=== PATIENT | male | born 1955 | race Caucasian/White ===

== ENCOUNTER 2022-07-29 05:43 | Inpatient (IN) | payer MEDICARE ==
[2022-07-24 12:52] LABS: ALBUMIN 4.5 G/DL (3.4-5.0); ALBUMIN/GLOBULIN RATIO 1.4 (1.1-1.5); ALKALINE PHOSPHATASE 79 IU/L (46-116); BLOOD UREA NITROGEN 25 MG/DL (7-18); BUN/CREATININE RATIO 22.7 (5.4-32.0); CALCIUM 9.5 MG/DL (8.5-10.1); CHLORIDE 101 MMOL/L (99-107); PRE OP ALT 50 U/L (30-65); PRE OP ANION GAP 9 (8-16); PRE OP AST 32 U/L (10-37); PRE OP BILIRUB, TOTAL 0.8 MG/DL (0.0-1.0); PRE OP GLUCOSE 105 MG/DL (70-104); PRE OP POTASSIUM 3.9 MMOL/L (3.4-5.1); PRE OP SODIUM 138 MMOL/L (135-145); TOTAL CARBON DIOXIDE 28.3 MMOL/L (24-32); TOTAL PROTEIN 7.8 G/DL (6.4-8.2); eGFR 66 ML/MIN
[2022-07-24 12:53] LABS: BASOPHILS % (AUTO) 0.8 % (0-1); EOSINOPHILS # (AUTO) 0.1 X10'3 (0-0.9); EOSINOPHILS % (AUTO) 1.2 % (0-6); LYMPHOCYTES # (AUTO) 1.3 X10'3 (1.1-4.8); LYMPHOCYTES % (AUTO) 20.7 % (21-51); MEAN CORPUSCULAR HEMOGLOBIN 32.1 PG (27.0-31.0); MEAN CORPUSCULAR HGB CONC 34.5 g/dL (33.0-36.5); MEAN CORPUSCULAR VOLUME 93.3 FL (78-98); MEAN PLATELET VOLUME 7.2 FL (7.4-10.4); MONOCYTES # (AUTO) 0.5 X10'3 (0-0.9); MONOCYTES % (AUTO) 8.6 % (2-12); NEUTROPHILS # (AUTO) 4.2 X10'3 (1.8-7.7); NEUTROPHILS % (AUTO) 68.7 % (42-75); PRE OP HEMATOCRIT 38.9 % (42.0-52.0); PRE OP HEMOGLOBIN 13.4 g/dL (14.0-17.9); PRE OP PLATELET COUNT 235 X10'3 (140-440); RED BLOOD COUNT 4.16 X10'6 (4.70-6.10)
[2022-07-29] VITALS (26 sets, daily range): BP systolic 107–193; BP diastolic 47–88
[~2022-07-29] VITALS: Ht 165.1 cm; Wt 76.7 kg
[~2022-07-29 05:43] MED LIST: ASPI-1264 PO; ATOR40TA72 PO; CARI350T PO; DICL75TA28 PO; DOCUMENT DATE & TIME OF BETA-BLOCKER PO ONE; FLUT16SP2 BOTHNARES; LATA2.5D14 EACHEYE; LOSA1TAB41 PO; METO-395 PO; acetaminophen 325mg tablet PO ONE; ceFAZolin inj. 2,000 MG in dextrose 5%-water 100 ML IV ONE; celeCOXIB 100mg capsule PO ONE; famotidine 20mg tablet PO ONE; gabapentin 300mg capsule PO ONE; metoclopramide 5 mg/ml inj IV ONE; oxyCODONE SR 10mg (sust. release) tab -2 tabs (20mg) PO ONE; tranexamic acid inj. 1,000 MG in normal saline IV soln 100ML IV ONE; vancomycin 1,500 MG in NS 300ml IV soln IV ONE
--- NOTE | 2022-07-29 05:55 | NUR ---
PATIENT PREPARED FOR SURGERY, IV STARTED IN RIGHT HAND 18 G. AT BEDSIDE. PT APPEARS VERY ANXIOUS, AND NERVOUS. PT STATES THAT HE DID WATCH THE VIDEO ABOUT HIS SURGERY AND ALSO READ THE HANDBOOK ON TOTAL JOINT REPLACEMENTS. HE USED THE HIBACLEN SOAP FOR 5 DAYS INCLUDING THIS MORNING. HE ALSO STOPPED HIS ASPIRIN DIRECTED 8 DAYS AGO. PT IS PLANNING ON STAYING THE NIGHT. PT AND EDUCATED ON USING THE INCENTIVE SPIROMETER AND WAS ABLE TO RETURN DEMONSTRATE THE USE OF IT. DR FRANK AT BEDSIDE AND MARKED THE LEFT HIP. LEFT HIP WAS WIPED AND SHAVED BY [facility]. DR MARQUEZ FROM ANESTHESIA ALSO AT BEDSIDE AND SPOKE TO PT AT LENGTH ABOUT HIS ANESTHESIA. PT IS CONCERNED ABOUT BECOMING CONSTIPATED AFTER HIS SURGERY, PT EDUCATED ON GOOD BOWEL REGIMENT AND THE USE OF PAIN MEDICATIONS POST SURGERY.
[2022-07-29] MEDS: potassium cl 20mEq in 1/2 NS 1,000 ML IV SCH ×3 (06:40→22:40)
[2022-07-29] MEDS ORDERED: acetaminophen 325mg tablet PO PRN (06:40)
[2022-07-29] MEDS ORDERED: HYDROcodone/acetaminophen 10/325mg tab PO PRN (06:40)
[2022-07-29] MEDS ORDERED: bisacodyl 10mg suppository rectal RC PRN (06:40)
[2022-07-29] MEDS ORDERED: HYDROmorphone inj. 0.5 MG/0.5 ML DISP.SYRIN IV PRN (06:40)
[2022-07-29] MEDS ORDERED: naloxone 0.4 mg/ml inj IV PRN (06:40)
[2022-07-29] MEDS ORDERED: ondansetron/PF 4mg/2ml inj IV PRN ×2 (06:40→10:00)
[2022-07-29] MEDS ORDERED: HYDROmorphone 1 mg/ml syringe IV PRN (06:40)
[2022-07-29] MEDS ORDERED: magnesium hydroxide 30ml (MOM) UD suspension PO PRN (06:40)
[2022-07-29] MEDS ORDERED: diphenhydrAMINE 25mg capsule PO PRN ×2 (06:40)
[2022-07-29] MEDS: ringers solution, lacted 1,000 ML IV SCH ×2 (07:06→16:43)
[2022-07-29] MEDS ORDERED: ketorolac trometh. 30mg/ml inj. ONE (07:15)
[2022-07-29] MEDS ORDERED: epiNEPHrine 1 mg/ml inj ONE (07:15)
[2022-07-29] MEDS ORDERED: ROPIVAcaine 0.5% (5mg/ml) 30ml vial ONE (07:16)
[2022-07-29] MEDS ORDERED: cloNIDine hcl/PF 100mcg/ml inj ONE (07:16)
[2022-07-29] MEDS ORDERED: vancomycin 1,000mg inj ONE (07:16)
--- NOTE | 2022-07-29 07:30 | NUR ---
PTS BLOOD PRESSURE REPEATED 151/72, IMPROVED FROM EARLIER BLOOD PRESSURE
[2022-07-29] MEDS ORDERED: ceFAZolin/D5W- 1GM premix 50 ML IV SCH (08:00)
[2022-07-29] MEDS: latanoprost 0.005% 2.5ml ophthalmic drops EACHEYE SCH (08:00)
[2022-07-29] MEDS: ascorbic acid 500mg tablet PO SCH ×2 (08:00→20:53)
[2022-07-29] MEDS: multivitamins, therapeutics tablet PO SCH (08:00)
[2022-07-29] MEDS: losartan 50mg tablet PO SCH (08:00)
[2022-07-29] MEDS: HYDROchlorothiazide 12.5mg capsule PO SCH (08:00)
[2022-07-29] MEDS: gabapentin 300mg capsule PO SCH ×3 (08:00→20:53)
[2022-07-29] MEDS: aspirin 325mg tablet PO SCH (08:30)
[2022-07-29] MEDS ORDERED: MIDAZolam 1 MG/ML 5ML VIAL ONE (08:40)
[2022-07-29] MEDS ORDERED: fentaNYL/PF 50MCG/1 ML 2ML syringe ONE (08:40)
[2022-07-29] MEDS ORDERED: BUPIVAcaine/PF 7.5mg/ml (0.75%) 10ml vial ONE (08:54)
[2022-07-29] MEDS ORDERED: propofol inj 20 ML IV ONE ×2 (08:54→09:04)
[2022-07-29] MEDS ORDERED: ROPIVAcaine 0.5% (5mg/ml) 30ml vial IJ ONE (09:36)
[2022-07-29] MEDS ORDERED: epiNEPHrine 1 mg/ml inj SQ ONE (09:39)
[2022-07-29] MEDS ORDERED: ketorolac trometh. 30mg/ml inj. IV ONE (09:40)
[2022-07-29] MEDS ORDERED: cloNIDine hcl/PF 100mcg/ml inj EP ONE (09:40)
[2022-07-29] MEDS ORDERED: morphine 4 MG/ML inj SYRINge IV PRN (10:00)
[2022-07-29] MEDS ORDERED: proCHLORperazine 10 MG/2 ml inj IV PRN (10:00)
[2022-07-29] MEDS ORDERED: meperidine/PF 25mg/ml syringe IV PRN ×3 (10:00)
[2022-07-29] MEDS ORDERED: morphine 2 MG/ML inj. syringe IV PRN (10:00)
[2022-07-29] MEDS ORDERED: ringers solution, lacted 1,000 ML IV SCH (10:00)
--- NOTE | 2022-07-29 10:18 | NUR ---
Received from OR via BED, accompanied by Anesthesiologist DR DE and report given by Anesthesiologist AND CORDAGE SALES REPRESENTATIVE. PT DROWSY, DENIES PAIN. LEFT HIP W/ISSA DRAIN/DRSG CDI W/GREEN LIGHT ILLUMINATION, BRACE ON LEFT LEG. PT UNABLE TO MOVE BILLOLY LE'S, DERMATOME LEVEL L-1. Addendum: 07/29/22 at 1044 by Raissa Laboy RN Amended: Links added.
[2022-07-29] MEDS ORDERED: hydrALAZINE 20mg/ml inj. IV PRN (12:50)
--- NOTE | 2022-07-29 13:28 | NUR ---
Report called to receiving nurse. Transferred via BED, 1 BAG OF Belongings SENT W/PT TO ROOM 401. RECEIVING RN AT BEDSIDE TO RECEIVE PT. PT COMFORTABLE, NOTIFIED OF PTS TRANSFER. Special Issues communicated to receiving nurse. YES. Addendum: 07/29/22 at 1412 by Raissa Laboy RN Amended: Links added.
[2022-07-29] MEDS ORDERED: tranexamic acid inj. 770 MG in normal saline 100ml IV soln 92.3 ML IV ONE (13:30)
[2022-07-29] MEDS: ceFAZolin/D5W- 1GM premix 50 ML IV SCH ×2 (17:26→23:31)
[2022-07-29] MEDS: HYDROcodone/acetaminophen 10/325mg tab PO PRN (17:27)
--- NOTE | 2022-07-29 18:59 | NUR ---
Patient was in the recovery room, for three hours prior to admittance to the floor. The last two VS were done on the floor. Addendum: 07/29/22 at 1906 by Sabina Woodruff RN Amended: Links added.
--- NOTE | 2022-07-29 19:15 | NUR ---
Problems reprioritized. Patient report given, questions answered & plan of care reviewed with Magdalene MCKEON.
[2022-07-29] MEDS ORDERED: vancomycin/NS 1 GM ADD-VANTAGE 250 ML IV SCH (20:00)
[2022-07-29] MEDS: metoprolol succinate 25mg (24-HOUR) SR. Tablet PO SCH (20:54)
[2022-07-29] MEDS: sennosides 8.6mg tablet PO SCH (20:54)
[2022-07-29] MEDS: atorvastatin 20mg tablet PO SCH (20:55)
[2022-07-30 02:00] VITALS: BP 117/75
[2022-07-30] MEDS: HYDROcodone/acetaminophen 10/325mg tab PO PRN ×2 (04:54→18:46)
[2022-07-30 04:59] LABS: BASOPHILS % (AUTO) 0.2 % (0-1); EOSINOPHILS % (AUTO) 0.3 % (0-6); HEMATOCRIT 31.2 % (42.0-52.0); HEMOGLOBIN 11.1 g/dl (14.0-17.9); LYMPHOCYTES % (AUTO) 10.6 % (21-51); MEAN CORPUSCULAR HEMOGLOBIN 33.2 PG (27.0-31.0); MEAN CORPUSCULAR HGB CONC 35.7 g/dL (33.0-36.5); MEAN CORPUSCULAR VOLUME 92.9 FL (78-98); MONOCYTES # (AUTO) 0.9 X10'3 (0-0.9); MONOCYTES % (AUTO) 10.1 % (2-12); NEUTROPHILS # (AUTO) 7.2 X10'3 (1.8-7.7); NEUTROPHILS % (AUTO) 78.8 % (42-75); PLATELET COUNT 208 X10'3 (140-440); RED BLOOD COUNT 3.36 X10'6 (4.70-6.10); RED CELL DISTRIBUTION WIDTH 13.2 % (11.5-14.5); WHITE BLOOD COUNT 9.1 X10'3 (4.5-11.0)
[2022-07-30 05:08] LABS: ANION GAP 8 (8-16); CHLORIDE 105 MMOL/L (99-107); POTASSIUM 4.2 MMOL/L (3.5-5.1); SODIUM 137 MMOL/L (135-145); TOTAL CARBON DIOXIDE 23.8 MMOL/L (24-32)
[2022-07-30 06:00] VITALS: BP 143/65
[2022-07-30] MEDS: potassium cl 20mEq in 1/2 NS 1,000 ML IV SCH ×3 (06:40→21:16)
--- NOTE | 2022-07-30 06:43 | NUR ---
Problems reprioritized. Patient report given, questions answered & plan of care reviewed with MIKE STRINGER.
[2022-07-30] MEDS: latanoprost 0.005% 2.5ml ophthalmic drops EACHEYE SCH (08:00)
[2022-07-30] MEDS: aspirin 325mg tablet PO SCH (08:41)
[2022-07-30] MEDS: HYDROchlorothiazide 12.5mg capsule PO SCH (08:42)
[2022-07-30] MEDS: multivitamins, therapeutics tablet PO SCH (08:42)
[2022-07-30] MEDS: gabapentin 300mg capsule PO SCH ×3 (08:42→18:44)
[2022-07-30] MEDS: ascorbic acid 500mg tablet PO SCH ×2 (08:42→18:45)
[2022-07-30] MEDS: losartan 50mg tablet PO SCH (08:43)
[2022-07-30 10:00] VITALS: BP 156/61
--- NOTE | 2022-07-30 11:02 | NUR ---
Joint surgery consult: Pt s/p L hip surgery this admit per EMR. Pt seen by DIVYA for written/verbal high protein diet ed w/ RD contact information provided. DIVYA encouraged pt to contact dietitian's office if further nutrition questions/concerns. Addendum: 07/30/22 at [address] Amended: Links added.
--- NOTE | 2022-07-30 11:15 | NUR ---
NOTIFIED DR. FRANK PATIENTS QUAD IS NOT WAKING UP AND WILL BE STAYING THE NIGHT. PATIENT AND HIS ARE AWARE. Addendum: 07/30/22 at 1531 by Sabina Woodruff RN WRONG DATE
--- NOTE | 2022-07-30 14:25 | NUR ---
Problems reprioritized. Patient report given, questions answered & plan of care reviewed with HEDY MCKEON.
--- NOTE | 2022-07-30 14:38 | NUR ---
Patient in room ORTHO 4015. I have received report from Sabina on ortho and had the opportunity to ask questions and assume patient care.
--- NOTE | 2022-07-30 15:31 | NUR ---
NOTIFIED DR. FRANK PATIENTS QUAD IS NOT WAKING UP AND WILL BE STAYING THE NIGHT. PATIENT AND HIS ARE AWARE. PATIENT TO MOVE TO 350B PATIENT LEG STILL BUCKLED WHEN STANDING ON THE STEADY TO GET FROM CHAIR TO BED.
--- NOTE | 2022-07-30 15:45 | NUR ---
patient arrived to the floor, tucked in. Resting comfortably.
[2022-07-30 18:00] VITALS: BP 156/72
--- NOTE | 2022-07-30 18:10 | NUR ---
Problems reprioritized. Patient report given, questions answered & plan of care reviewed with Jesus.
[2022-07-30] MEDS: sennosides 8.6mg tablet PO SCH (18:44)
[2022-07-30] MEDS: metoprolol succinate 25mg (24-HOUR) SR. Tablet PO SCH (18:45)
[2022-07-30] MEDS: atorvastatin 20mg tablet PO SCH (18:45)
[2022-07-30] MEDS: celeCOXIB 100mg capsule PO SCH (18:45)
[2022-07-30] MEDS: fluticasone nasal spray 16GM bottle NS SCH (20:27)
[2022-07-30 22:00] VITALS: BP 129/57
--- NOTE | 2022-07-31 03:27 | NUR ---
reported to MIKE Ryan. noted pt c/o numbness to knee cap and had issues with PT - holding discharge until pt safe to ambulate. pt has questions about his leg brace and his aspirin dose at home written on board to ask MD in am.
--- NOTE | 2022-07-31 03:33 | NUR ---
Patient in room RAUL 350. I have received report from MIKE Lee and had the opportunity to ask questions and assume patient care.
--- NOTE | 2022-07-31 03:40 | NUR ---
I agree with previous electronic systems security assessment except patient does have IV access.
[2022-07-31] MEDS: HYDROcodone/acetaminophen 10/325mg tab PO PRN ×3 (04:55→19:48)
[2022-07-31 06:00] VITALS: BP 150/66
--- NOTE | 2022-07-31 06:36 | NUR ---
Problems reprioritized. Patient report given, questions answered & plan of care reviewed with MIKE Haddad.
--- NOTE | 2022-07-31 06:39 | NUR ---
Patient in room RAUL 350. I have received report from Robina and had the opportunity to ask questions and assume patient care.
[2022-07-31 06:56] LABS: BASOPHILS % (AUTO) 0.5 % (0-1); EOSINOPHILS # (AUTO) 0.2 X10'3 (0-0.9); EOSINOPHILS % (AUTO) 2.3 % (0-6); HEMATOCRIT 30.9 % (42.0-52.0); HEMOGLOBIN 10.9 g/dl (14.0-17.9); LYMPHOCYTES # (AUTO) 1.5 X10'3 (1.1-4.8); LYMPHOCYTES % (AUTO) 18.5 % (21-51); MEAN CORPUSCULAR HEMOGLOBIN 32.8 PG (27.0-31.0); MEAN CORPUSCULAR HGB CONC 35.2 g/dL (33.0-36.5); MEAN CORPUSCULAR VOLUME 93.4 FL (78-98); MEAN PLATELET VOLUME 7.3 FL (7.4-10.4); MONOCYTES # (AUTO) 0.9 X10'3 (0-0.9); MONOCYTES % (AUTO) 11.9 % (2-12); NEUTROPHILS # (AUTO) 5.3 X10'3 (1.8-7.7); NEUTROPHILS % (AUTO) 66.8 % (42-75); PLATELET COUNT 195 X10'3 (140-440)
[2022-07-31] MEDS: latanoprost 0.005% 2.5ml ophthalmic drops EACHEYE SCH (08:04)
[2022-07-31] MEDS: celeCOXIB 100mg capsule PO SCH ×2 (08:04→19:47)
[2022-07-31] MEDS: losartan 50mg tablet PO SCH (08:08)
[2022-07-31] MEDS: aspirin 325mg tablet PO SCH (08:10)
[2022-07-31] MEDS: HYDROchlorothiazide 12.5mg capsule PO SCH (08:10)
[2022-07-31] MEDS: multivitamins, therapeutics tablet PO SCH (08:10)
[2022-07-31] MEDS: ascorbic acid 500mg tablet PO SCH ×2 (08:10→19:47)
[2022-07-31] MEDS: gabapentin 300mg capsule PO SCH ×3 (08:10→19:48)
[2022-07-31 10:00] VITALS: BP 146/49
[2022-07-31 18:00] VITALS: BP 141/58
--- NOTE | 2022-07-31 18:07 | NUR ---
Problems reprioritized. Patient report given, questions answered & plan of care reviewed with Jesus.
[2022-07-31] MEDS: sennosides 8.6mg tablet PO SCH (19:47)
[2022-07-31] MEDS: metoprolol succinate 25mg (24-HOUR) SR. Tablet PO SCH (19:48)
[2022-07-31] MEDS: atorvastatin 20mg tablet PO SCH (19:48)
[2022-07-31] MEDS: fluticasone nasal spray 16GM bottle NS SCH (19:52)
[2022-07-31 22:12] VITALS: BP 160/59
[2022-08-01 05:10] LABS: BASOPHILS % (AUTO) 0.6 % (0-1); EOSINOPHILS # (AUTO) 0.2 X10'3 (0-0.9); EOSINOPHILS % (AUTO) 2.6 % (0-6); HEMATOCRIT 30.6 % (42.0-52.0); HEMOGLOBIN 10.8 g/dl (14.0-17.9); LYMPHOCYTES # (AUTO) 1.5 X10'3 (1.1-4.8); LYMPHOCYTES % (AUTO) 18.8 % (21-51); MEAN CORPUSCULAR HEMOGLOBIN 33.1 PG (27.0-31.0); MEAN CORPUSCULAR HGB CONC 35.4 g/dL (33.0-36.5); MEAN CORPUSCULAR VOLUME 93.5 FL (78-98); MEAN PLATELET VOLUME 7.2 FL (7.4-10.4); MONOCYTES % (AUTO) 12.5 % (2-12); NEUTROPHILS # (AUTO) 5.1 X10'3 (1.8-7.7); NEUTROPHILS % (AUTO) 65.5 % (42-75); PLATELET COUNT 206 X10'3 (140-440); RED BLOOD COUNT 3.27 X10'6 (4.70-6.10); RED CELL DISTRIBUTION WIDTH 13.1 % (11.5-14.5); WHITE BLOOD COUNT 7.9 X10'3 (4.5-11.0)
[2022-08-01] MEDS: HYDROcodone/acetaminophen 10/325mg tab PO PRN (05:42)
--- NOTE | 2022-08-01 06:20 | NUR ---
Patient in room RAUL 350. I have received report from Jesus MCKEON and had the opportunity to ask questions and assume patient care.
[2022-08-01 06:26] VITALS: BP 129/55
--- NOTE | 2022-08-01 06:36 | NUR ---
reported to days. noted pt resting - anxious to go home after working with PT and at 1100.
[2022-08-01] MEDS: latanoprost 0.005% 2.5ml ophthalmic drops EACHEYE SCH (08:35)
[2022-08-01] MEDS: HYDROchlorothiazide 12.5mg capsule PO SCH (08:36)
[2022-08-01] MEDS: aspirin 325mg tablet PO SCH (08:36)
[2022-08-01] MEDS: ascorbic acid 500mg tablet PO SCH (08:36)
[2022-08-01] MEDS: losartan 50mg tablet PO SCH (08:37)
[2022-08-01] MEDS: multivitamins, therapeutics tablet PO SCH (08:37)
[2022-08-01] MEDS: gabapentin 300mg capsule PO SCH ×2 (08:38→13:30)
[2022-08-01] MEDS: celeCOXIB 100mg capsule PO SCH (08:39)
[2022-08-01 11:00] VITALS: BP 173/55
--- NOTE | 2022-08-01 12:30 | NUR ---
Patient and was educated by PT about home care. Afterwards, I was advised that patient has some concerns about his eliseo dressing. On the top of his dressing closer to back , is red and itchy. Along the rest of the bandage are no signs of redness and patient denies any itching. I called Dr. Kirk Brito and left a message regarding this and patient is aware. Patient asked how long did I think it would be before he calls back. I advised him that Dr. Brito is in surgery today and the ETA is unknown. I completed the patient discharge instructions. At the end of the instruction, patient and decided to just go home and will call if it gets worse.
--- NOTE | 2022-08-01 13:30 | NUR ---
Patient was dressed and all belongings gathered. Discharge instructions were explained to patient and . Patient is alert and appropriate for discharge. All questions were answered. Patient wheeled down stairs and helped into private vehicle.
--- NOTE | 2022-08-01 14:19 | NUR ---
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
== END 2022-08-01 14:25 | disposition home or self-care (01) | DRG 470 ==
LOC: PAS 05:43 → ORTHO 4S 13:30 → PAS 16:03 → SUR 3N 07-30 15:42
PROVIDERS: ADMIT Orthopaedic Surgery; ATTEND Orthopaedic Surgery
PROC: 3E0T3BZ Introduction of Anesthetic Agent into Peripheral Nerves and Plexi, Percutaneous Approach (ICD-10-PCS; 2022-07-29)
PROC: 3E0T33Z Introduction of Anti-inflammatory into Peripheral Nerves and Plexi, Percutaneous Approach (ICD-10-PCS; 2022-07-29)
PROC: 0SRB06Z Replacement of Left Hip Joint with Oxidized Zirconium on Polyethylene Synthetic Substitute, Open Approach (ICD-10-PCS; principal; 2022-07-29 08:33)
DX: M16.12 Unilateral primary osteoarthritis, left hip (principal); S74.12XA Injury of femoral nerve at hip and thigh level, left leg, initial encounter; X58.XXXA Exposure to other specified factors, initial encounter; Z79.82 Long term (current) use of aspirin; Z79.899 Other long term (current) drug therapy; Y93.89 Activity, other specified; Y92.89 Other specified places as the place of occurrence of the external cause; Y99.8 Other external cause status
CPT/HCPCS: 36415; 72170; 80051; 80053; 82948; 85025; 86885; 86900; 86901; 87081; 97110; 97116; 97530; A7000; C1776; G0378; J0171; J0360; J0690; J0735; J1885; J2250; J2704; J2765; J2795; J3010; J3370; J3480; J3490; J7040; J7060; J7120